=== PATIENT | male | born 1950 | race Caucasian/White ===

== ENCOUNTER 2017-02-04 06:04 | Day surgery (SDC) | payer MEDICARE, BC ==
[2017-01-30 15:45] VITALS: BMI 34.2
[2017-02-04] MEDS ORDERED: ceFAZolin 1,000 MG in SODIUM CHLORIDE 0.9% IRRIGATIO 250 ML IRRIGATION ONE (06:30)
[2017-02-04] MEDS ORDERED: ceFAZolin 2 GM in SODIUM CHLORIDE 0.9% 100 ML IVPB ONE (06:30)
[2017-02-04 07:38] LABS: Basophils % (A) 0 %; CH 31.8; CHCM 32.8; Eosinophils # (A) 0.2 k/uL (0-0.7); Eosinophils % (A) 2 %; HCT 32.1 % (39.0-53.0); HDW 2.59; HGB 10.6 gm/dL (13.0-17.5); Luc # (Auto) 0.11; Luc % (Auto) 1; Lymphocytes # (A) 1.5 k/uL (1.0-4.8); Lymphocytes % (A) 18 %; MCH 32.2 pg (25.0-35.0); MCHC 33.1 g/dL (31.0-37.0); MCV 97.4 fL (80.0-100.0); Mean Platelet Volume 7.6; Monocytes # (A) 0.5 k/uL (0-1.0); Monocytes % (A) 6 %; Neutrophils % (A) 73 %; RBC 3.29 m/uL (4.30-5.90); RDW 13.9 % (11.5-15.5); WBC 8.3 k/uL (3.8-10.6); WBC (Perox) 8.63
[2017-02-04] MEDS ORDERED: IODIXANOL 270 MG/ML 50 ML ML IV ONE (07:44)
[2017-02-04] MEDS ORDERED: IV FLUID CONTINUATION 400 ML IV ONE (07:44)
[2017-02-04 07:47] LABS: Glucose,Whole Blood 180 mg/dL (75-99)
[2017-02-04] MEDS ORDERED: fentaNYL (PF) 50 MCG/ML 2 ML AMP IV ONE (07:50)
[2017-02-04] MEDS ORDERED: MIDAZOLAM 2 MG/2 ML VIAL IV ONE (07:50)
[2017-02-04] MEDS ORDERED: LIDOCAINE 1% INJ 10MG/ML (20 ML MDV) SQ ONE (07:56)
[2017-02-04] MEDS: LIDOCAINE 1% INJ 10MG/ML (20 ML MDV) SQ ONE ×2 (08:07→08:15)
[2017-02-04] MEDS ORDERED: HYDROmorphone 2 MG/ML 1 ML SYRINGE IVP ONE (08:20)
[2017-02-04 08:39] LABS: Calcium 9.2 mg/dL (8.4-10.2)
[2017-02-04] MEDS ORDERED: NITROGLYCERIN OINT 1 INCH/GM PACKET TOPICAL ONE (09:00)
[2017-02-04] MEDS ORDERED: ACETAMINOPHEN TAB 325 MG TAB PO PRN (09:01)
--- NOTE | 2017-02-04 09:13 | P.PCN ---
Date of Procedure: 02/04/17 Preoperative Diagnosis: Intermittent high degree AV block and bradycardia Postoperative Diagnosis: The same Procedure(s) Performed: Dual-chamber permanent pacemaker implantation, axillary venography Description of Procedure: HISTORY: This is a 66-year-old gentleman with history of chronic renal failure on dialysis and also ischemic heart disease, found to have intermittent high degree AV block and severe bradycardia associated with fatigue. Patient was referred for permanent pacemaker implantation by Dr. Peña. CONSENT:I have discussed the risks, benefits and alternative therapies for the above-mentioned procedure and for both sedation/analgesia as well as necessary blood product administration, if indicated, as they pertain to this patient. The patient has indicated understanding and acceptance of the risks and procedures discussed. PROCEDURE: Patient was brought to the lab in a fasting state. Patient was prepped and draped in the usual fashion. Patient was given IV sedation with fentanyl and Versed. The skin below the left clavicle was infiltrated with lidocaine. An incision was made parallel to deltopectoral groove was deepened until the pectoral fascia was exposed. A pocket was created by blunt dissection and cautery. Axillary venography was performed to delineate the course of the axillary vein. 2 sticks were performed into extrathoracic portion of the axillary vein and 2 sheaths were advanced over the guidewires and left in subclavian vein. Conscious Sedation: Versed : 0.5 mg Fentanyl 25 g Dilaudid: 0.5 mg Duration 63 minutes LEADS: ATRIAL: This is manufactured by [employer]. Model number is 7740. Serial number is [id number]. VENTRICULAR: This is manufactured by [employer]. Model number is 7741. Serial number is [id number] The device: MANUFACTURED [employer]. MODEL NUMBER IS [id number]. SERIAL NUMBER IS [id number] The ventricular lead is maneuvered l with help of a straight and curved stylets into the left ventricle apical region. Satisfactory position was obtained and threshold measurements were made. The atrial lead was then maneuvered into the right atrial appendage. And thresholds were obtained. THRESHOLDS: ATRIUM: 0.5 V at pulse width of 0.5 ms. Impedance is 581 ohms P-wave: 3.8 mV VENTRICLE: 0.4 V at pulse width of 0.5 [place] . [place] [address] oh[place] R-wave:. 10 mV The leads and pulse generator remained in the pocket after it was washed with antibiotics. Pocket was closed in the usual fashion. The fascia was closed with 2-0 Prolene ,the subcutaneous tissue was closed with 3-0 Prolene and the skin was closed with 4-0 Prolene. PROGRAMMING: MODE: DDDR RATE: 60-120 OUTPUT: Atrium Ventricle FINAL IMPRESSION: #1 axillary venography. #2. Dual-chamber permanent pacemaker implantation COMPLICATIONS: . None. Patient had some oozing in the pocket related to his dialysis and renal failure PLAN: . Continue prophylactic antibiotics. Monitored on the telemetry unit. Renal consult for management of his renal failure and hospitalist to manage her diabetes.
[2017-02-04] MEDS ORDERED: ceFAZolin 2 GM in SODIUM CHLORIDE 0.9% 100 ML IVPB SCH (09:15)
[2017-02-04] MEDS ORDERED: SIMETHICONE 80 MG CHEWABLE PO PRN (09:36)
[2017-02-04 10:10] VITALS: RESP 18
[2017-02-04] MEDS ORDERED: FUROSEMIDE 20 MG TAB PO SCH (12:00)
[2017-02-04] MEDS ORDERED: SEVELAMER HCL 1600 MG PO SCH (12:00)
[2017-02-04] MEDS: HYDROcodone/APAP 5-325MG 1 EACH TAB PO PRN ×2 (12:03→18:47)
[2017-02-04 12:05] LABS: Glucose,Whole Blood 202 mg/dL (75-99)
[2017-02-04] MEDS: SEVELAMER 800 MG TAB PO SCH (12:07)
[2017-02-04] MEDS: MULTIVITAMINS, THERA 1 EACH TAB PO SCH (12:07)
[2017-02-04 12:15] LABS: Hemoglobin A1C 7.1 % (4.2-6.1)
[2017-02-04] MEDS ORDERED: SEVELAMER 800 MG TAB PO SCH ×3 (12:30→21:00)
[2017-02-04] MEDS ORDERED: FLUoxetine HCL 20 MG CAP PO STA (12:33)
[2017-02-04] MEDS ORDERED: ALLOPURINOL 100 MG TAB PO STA (12:33)
[2017-02-04] MEDS: INSULIN LISPRO (humaLOG) 300 UNIT/3 ML VIAL SQ SCH ×3 (13:09→20:54)
[2017-02-04] MEDS: INSULIN GLARGINE 100 UNIT/ML 10 ML VIAL SQ SCH (13:13)
--- NOTE | 2017-02-04 13:25 | P.CONS ---
History of Present Illness - Reason for Consult Management of diabetes mellitus and insulin recommendations. - History of Present Illness Patient was admitted for elective to [facility] cardiac pacemaker, patient underwent surgery. Patient uses Lantus 8 units along with the NovoLog only during morning at breakfast time 5 units. Patient says that his blood sugars fluctuated due to his dietary noncompliance. Patient's hemoglobin A1c was opted which is 7.1. Patient denied any fever, chills, nausea, vomiting. Patient is feeling better patient underwent the procedure patient has a sling to the right arm after the procedure Review of Systems REVIEW OF SYSTEMS: CONSTITUTIONAL: No fever, no malaise, no fatigue. HEENT: No recent visual problems or hearing problems. Denied any sore throat. CARDIOVASCULAR: No chest pain, orthopnea, PND, no palpitations, no syncope. PULMONARY: No shortness of breath, no cough, no hemoptysis. GASTROINTESTINAL: No diarrhea, no nausea, no vomiting, no abdominal pain. Normoactive bowel sounds. NEUROLOGICAL: No headaches, no weakness, no numbness. HEMATOLOGICAL: Denies any bleeding or petechiae. GENITOURINARY: Denies any burning micturition, frequency, or urgency. MUSCULOSKELETAL/RHEUMATOLOGICAL: Denies any joint pain, swelling, or any muscle pain. ENDOCRINE: Denies any polyuria or polydipsia. The rest of the 14-point review of systems is negative. Past Medical History Past Medical History: Diabetes Mellitus, Dialysis, Eye Disorder, GERD/Reflux, Hyperlipidemia, Hypertension, Renal Disease Additional Past Medical History / Comment(s): congenital spinal defect, retinopathy, ADD, Neuropathy dialysis jan 20 2015. has dialysis es, , and sat. charcot foot left History of Any Multi-Drug Resistant Organisms: None Reported Past Surgical History: No Surgical Hx Reported Additional Past Surgical History / Comment(s): right arm shunt for dialysis 2014 , bilat cataract 06/2016 Past Anesthesia/Blood Transfusion Reactions: No Reported Reaction Past Psychological History: ADD/ADHD, Anxiety Smoking Status: Never smoker Past Alcohol Use History: None Reported Past Drug Use History: None Reported - Past Family History Father Family Medical History: No Reported History Additional Family Medical History / Comment(s): pt is adopted & does not know any biological family hx Medications and Allergies Home Medications Medication Instructions Recorded Confirmed Type Atorvastatin Calcium [Lipitor] 80 mg PO HS 09/29/13 01/30/17 History FLUoxetine HCL [PROzac] 20 mg PO DAILY 09/29/13 01/30/17 History Insulin Glargine [Lantus] 8 unit SQ DAILY 09/29/13 02/04/17 History Insulin Aspart [NovoLOG] 5 unit SQ DAILY 03/14/14 02/04/17 History Furosemide [Lasix] 60 mg PO DIRECTED 09/30/14 02/04/17 History Allopurinol [Zyloprim] 100 mg PO DAILY 01/30/17 01/30/17 History Aspirin [Adult Low Dose Aspirin EC] 81 mg PO DAILY 01/30/17 01/30/17 History Cholecalciferol [Vitamin D3] 1,000 unit PO DAILY 01/30/17 01/30/17 History Mag/Aluminum/Sod Bicarb/Alginc 1 each PO DAILY PRN 01/30/17 02/04/17 History [Gaviscon 80-14.2 mg Tab Chew] Multivitamin [Men's Multi-Vitamin] 1 each PO DAILY 01/30/17 01/30/17 History Sevelamer HCl [Renagel] 1,600 mg PO AC-SUPPER 01/30/17 02/04/17 History Sevelamer HCl [Renagel] 1,600 mg PO W/LUNCH 01/30/17 01/30/17 History Sevelamer HCl [Renagel] 800 mg PO AC-BRKFST 01/30/17 02/04/17 History Allergies Allergy/AdvReac Type Severity Reaction Status Date / Time No Known Allergies Allergy Verified 01/30/17 15:15 Physical Exam Vitals: Vital Signs Temp Pulse Pulse Resp BP BP Pulse Ox 02/04/17 12:51 18 02/04/17 11:20 74 166/58 97 02/04/17 10:50 70 197/73 95 02/04/17 10:35 69 189/70 96 02/04/17 10:20 69 203/81 96 02/04/17 10:05 97.8 F 71 18 181/61 92 L 02/04/17 06:36 98.1 F 74 20 204/96 94 L Intake and Output 02/03/17 02/04/17 02/04/17 22:59 06:59 14:59 Intake Total 300 Output Total 300 Balance 0 Intake: IV 300 Output: Urine 300 Other: Voiding Method Toilet PHYSICAL EXAMINATION: GENERAL: The patient is alert and oriented x3, not in any acute distress. Well developed, well nourished. HEENT: Pupils are round and equally reacting to light. EOMI. No scleral icterus. No conjunctival pallor. Normocephalic, atraumatic. No pharyngeal erythema. No thyromegaly. CARDIOVASCULAR: S1 and S2 present. No murmurs, rubs, or gallops. PULMONARY: Chest is clear to auscultation, no wheezing or crackles. ABDOMEN: Soft, nontender, nondistended, normoactive bowel sounds. No palpable organomegaly. MUSCULOSKELETAL: No joint swelling or deformity. EXTREMITIES: No cyanosis, clubbing, or pedal edema. NEUROLOGICAL: Gross neurological examination did not reveal any focal deficits. SKIN: No rashes. Results CBC & Chem 7: 02/04/17 06:35 02/04/17 08:16 Labs: Abnormal Lab Results - Last 24 Hours (Table) 02/04/17 02/04/17 02/04/17 Range/Units 06:30 06:35 07:16 RBC 3.29 L (4.30-5.90) m/uL Hgb 10.6 L (13.0-17.5) gm/dL Hct 32.1 L (39.0-53.0) % BUN (9-20) mg/dL Creatinine (0.66-1.25) mg/dL Glucose (74-99) mg/dL POC Glucose (mg/dL) 180 H (75-99) mg/dL Hemoglobin A1c 7.1 H (4.2-6.1) % 02/04/17 02/04/17 Range/Units 08:16 12:01 RBC (4.30-5.90) m/uL Hgb (13.0-17.5) gm/dL Hct (39.0-53.0) % BUN 51 H (9-20) mg/dL Creatinine 5.68 H* (0.66-1.25) mg/dL Glucose 206 H (74-99) mg/dL POC Glucose (mg/dL) 202 H (75-99) mg/dL Hemoglobin A1c (4.2-6.1) % Assessment and Plan Plan: #1 that was read as type II: Humalog is probably not beneficial because of which Will be discontinued will monitor his blood sugars here patient will be started on his 8 units of Lantus, depending on his blood sugars here patient may need around 8-12 units of Lantus at home. #2 end-stage renal disease: Secondary to diabetic nephropathy and patient is on hemodialysis which will be continued as per nephrology. #4 gastroesophageal reflux disease #5 hyperlipidemia #6 hypertension For above-mentioned chronic medical problems and wouldn't continue her home appropriate medications.
[2017-02-04] MEDS: ceFAZolin 2 GM in SODIUM CHLORIDE 0.9% 100 ML IVPB SCH ×2 (15:24→20:53)
[2017-02-04 17:13] LABS: Glucose,Whole Blood 187 mg/dL (75-99)
[2017-02-04] MEDS: SODIUM CHLORIDE 0.9% 1,000 ML IV SCH ×3 (19:44→19:45)
[2017-02-04 20:55] LABS: Glucose,Whole Blood 157 mg/dL (75-99)
[2017-02-04] MEDS ORDERED: ATORVASTATIN 80 MG TAB PO SCH (21:00)
[2017-02-05] MEDS: HYDROcodone/APAP 5-325MG 1 EACH TAB PO PRN (01:39)
[2017-02-05] MEDS: ceFAZolin 2 GM in SODIUM CHLORIDE 0.9% 100 ML IVPB SCH ×2 (03:22→12:04)
[2017-02-05] MEDS: SODIUM CHLORIDE 0.9% 1,000 ML IV SCH ×2 (03:38→12:04)
--- NOTE | 2017-02-05 05:38 | CONS ---
CONSULTATION REASON FOR CONSULT: End-stage renal disease. HISTORY OF PRESENT ILLNESS: Patient is a 66-year-old male with end-stage renal disease, on hemodialysis on a Saturday, , Saturday schedule. He was admitted to the hospital for a pacemaker, which was placed this morning by Dr. Dumont. Patient is scheduled for hemodialysis tomorrow. He is receiving antibiotics. Therefore, we will dialyze him in the hospital tomorrow prior to discharge. Currently, patient denies any chest pains. No shortness of breath. No nausea, vomiting, abdominal pain. He tolerated the procedure fairly well. PAST MEDICAL HISTORY: End-stage renal disease, on hemodialysis, type 2 diabetes, hypertension, CKD, mineral bone disorder, hyperlipidemia, anemia of chronic disease, retinopathy, history of Charcot foot. PAST SURGICAL HISTORY: Right arm AV fistula, cataract surgery. SOCIAL HISTORY: Negative for smoking, drug abuse or alcohol abuse. MEDICATIONS: Medications at home prior to admission included Lipitor, Prozac, insulin, Lasix, Zyloprim, aspirin, Renagel. ALLERGIES: None. PHYSICAL EXAMINATION: On examination, patient is currently comfortable, awake, alert, oriented x3. He is not in any acute distress. Blood pressure is 165/61, heart rate 69 per minute. Patient is afebrile. EXAMINATION OF THE HEART: S1, S2. EXAMINATION OF THE LUNGS: Bilateral breath sounds are heard. Abdomen is soft, nontender. Examination of the lower extremities shows no evidence of edema. EN[employer]ICIAN exam is grossly intact. LABS: Labs show sodium of 142, potassium 4.0. Hemoglobin 10.6 g/dL. ASSESSMENT: 1. End-stage renal disease, on hemodialysis on a Saturday, , Saturday schedule via right arm AV fistula. We will arrange for hemodialysis in a.m. 2. Status post pacemaker placement. 3. Type 2 diabetes. 4. Hypertension. 5. 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 PLAN: Hemodialysis in a.m. Patient can be discharged tomorrow after dialysis. MMODL / ZACHERYN: [id number] /
[2017-02-05 06:51] LABS: Glucose,Whole Blood 165 mg/dL (75-99)
--- NOTE | 2017-02-05 07:59 | XR ---
EXAMINATION TYPE: XR chest 2V DATE OF EXAM: 02/05/2017 COMPARISON: 03/25/2014 TECHNIQUE: PA and lateral views submitted. HISTORY: Lead placement FINDINGS: Double lead pacemaker seen with the proximal lead overlying the right atrium and distal lead overlyin g the right ventricle. Mild central interstitial prominence noted. Tiny bilateral effusion suspected. No sizable pneumothorax. IMPRESSION: 1. Right-sided pacemaker appears in good position with no sizable pneumothorax. 2. Small bilateral effusions and basilar consolidation. Correlate for mild central venous congestion.
--- NOTE | 2017-02-05 08:36 | P.DS ---
Providers Date of admission: 02/04/2017 Attending physician: Suly Dumont Consults: 02/04/17 09:05 Consult Physician Routine Consulting Provider: Nicolasa Pringle Consult Reason/Comments: High Degree AV Block Do you want consulting provider notified?: Yes 02/04/17 09:36 Consult Physician Routine Consulting Provider: Quintin Kelly Consult Reason/Comments: Diabetic Management Do you want consulting provider notified?: Yes Primary care physician: Britta Branham - Discharge Diagnosis(es) (1) High degree atrioventricular block Current Visit: Yes Status: Acute (2) Chronic renal disease Current Visit: No Status: Acute (3) Congestive heart failure Current Visit: No Status: Acute (4) Diabetes Current Visit: No Status: Acute (5) HTN (hypertension) Current Visit: No Status: Acute (6) Hyperlipidemia Current Visit: No Status: Acute Hospital Course: This patient was brought in as an outpatient for permanent pacemaker implantation because of intermittent high degree AV block. Patient had a dual- chamber permanent pacemaker implantation yesterday. Patient tolerated the procedure well. The site looks intact with minimal oozing. No evidence of hematoma. Patient denies any significant chest pain. Chest x-ray shows proper lead position and no evidence of pneumothorax or other complications. Patient is having dialysis today. He'll be discharged home off dialysis. His blood pressure is running high. I'm going to add Norvasc 5 mg daily. He'll continue rest of the home medications. He is given usual instructions for the pacemaker. He'll keep the area dry for the next week. He is advised to not to lift infiltrates pushing or pulling with the right arm. Patient is advised to report if he develops any significant pain or swelling or redness. Follow-up with Dr. Peña in one week Plan - Discharge Summary New Discharge Prescriptions: New Cephalexin [Keflex] 500 mg PO Q8HR #20 cap amLODIPine BESYLATE [Norvasc] 5 mg PO ONCE #30 tablet No Action Insulin Glargine [Lantus] 8 unit SQ DAILY Atorvastatin Calcium [Lipitor] 80 mg PO HS FLUoxetine HCL [PROzac] 20 mg PO DAILY Insulin Aspart [NovoLOG] 5 unit SQ DAILY Furosemide [Lasix] 60 mg PO DIRECTED Cholecalciferol [Vitamin D3] 1,000 unit PO DAILY Allopurinol [Zyloprim] 100 mg PO DAILY Sevelamer HCl [Renagel] 1,600 mg PO AC-SUPPER Multivitamin [Men's Multi-Vitamin] 1 each PO DAILY Mag/Aluminum/Sod Bicarb/Alginc [Gaviscon 80-14.2 mg Tab Chew] 1 each PO DAILY PRN PRN Reason: Heartburn Aspirin [Adult Low Dose Aspirin EC] 81 mg PO DAILY Sevelamer HCl [Renagel] 1,600 mg PO W/LUNCH Sevelamer HCl [Renagel] 800 mg PO AC-BRKFST Discharge Medication List Atorvastatin Calcium [Lipitor] 80 mg PO HS 09/29/13 [History] FLUoxetine HCL [PROzac] 20 mg PO DAILY 09/29/13 [History] Insulin Glargine [Lantus] 8 unit SQ DAILY 09/29/13 [History] Insulin Aspart [NovoLOG] 5 unit SQ DAILY 03/14/14 [History] Furosemide [Lasix] 60 mg PO DIRECTED 09/30/14 [History] Allopurinol [Zyloprim] 100 mg PO DAILY 01/30/17 [History] Aspirin [Adult Low Dose Aspirin EC] 81 mg PO DAILY 01/30/17 [History] Cholecalciferol [Vitamin D3] 1,000 unit PO DAILY 01/30/17 [History] Mag/Aluminum/Sod Bicarb/Alginc [Gaviscon 80-14.2 mg Tab Chew] 1 each PO DAILY PRN 01/30/17 [History] Multivitamin [Men's Multi-Vitamin] 1 each PO DAILY 01/30/17 [History] Sevelamer HCl [Renagel] 1,600 mg PO AC-SUPPER 01/30/17 [History] Sevelamer HCl [Renagel] 1,600 mg PO W/LUNCH 01/30/17 [History] Sevelamer HCl [Renagel] 800 mg PO AC-BRKFST 01/30/17 [History] Cephalexin [Keflex] 500 mg PO Q8HR #20 cap 02/05/17 [Rx] amLODIPine BESYLATE [Norvasc] 5 mg PO ONCE #30 tablet 02/05/17 [Rx] Follow up Appointment(s)/Referral(s): Jacky Cuevas MD [STAFF PHYSICIAN] - 1 Week Patient Instructions/Handouts: Pacemaker (GEN) Discharge Disposition: HOME SELF-CARE
[2017-02-05] MEDS ORDERED: ALLOPURINOL 100 MG TAB PO SCH (09:00)
[2017-02-05] MEDS ORDERED: CHOLECALCIFEROL 1,000 UNIT TAB PO SCH (09:00)
[2017-02-05] MEDS ORDERED: INSULIN GLARGINE 100 UNIT/ML 10 ML VIAL SQ SCH ×2 (09:00)
[2017-02-05] MEDS ORDERED: INSULIN LISPRO (humaLOG) 300 UNIT/3 ML VIAL SQ SCH (09:00)
[2017-02-05] MEDS ORDERED: FLUoxetine HCL 20 MG CAP PO SCH (09:00)
[2017-02-05] MEDS ORDERED: SEVELAMER 800 MG TAB PO SCH (09:00)
[2017-02-05] MEDS ORDERED: amLODIPine 5 MG TAB PO SCH (09:00)
[2017-02-05 11:42] VITALS: BP 156/82; PULSE 69; TEMP 97.6
[2017-02-05] MEDS: INSULIN LISPRO (humaLOG) 300 UNIT/3 ML VIAL SQ SCH ×2 (11:46→12:25)
[2017-02-05 11:53] LABS: Glucose,Whole Blood 186 mg/dL (75-99)
[2017-02-05] MEDS: SEVELAMER 800 MG TAB PO SCH (12:02)
[2017-02-05] MEDS: MULTIVITAMINS, THERA 1 EACH TAB PO SCH (12:03)
[2017-02-05] MEDS: INSULIN GLARGINE 100 UNIT/ML 10 ML VIAL SQ SCH (12:26)
--- NOTE | 2017-02-05 20:33 | PN ---
PROGRESS NOTE Patient is seen for followup for end-stage renal disease. He is currently seen on hemodialysis. He tolerated his treatment very well. The patient is being discharged today after dialysis. He was admitted to the hospital for pacemaker placement. EXAMINATION: Blood pressure is 156/82, heart rate 69 per minute, patient is afebrile. Examination shows he appears to be euvolemic with no evidence of edema in his lower extremities. Access was working well. LABS: Show potassium of 4.08 from yesterday. ASSESSMENT: 1. End-stage renal disease, on hemodialysis on a Saturday, , Saturday schedule, status post hemodialysis today. 2. Status post pacemaker placement. 3. Hypertension currently improved post dialysis. Will adjust blood pressure medicines further depending on his readings at the unit. PLAN: The patient is stable for discharge from Nephrology standpoint. MMODL / IJN: [id number] /
== END 2017-02-05 14:35 | disposition home or self-care (01) ==
LOC: CATHEP 06:04 → 3OBS 08:57 → CATHEP 02-05 14:35
PROVIDERS: ATTEND Internal Medicine Cardiovascular Disease
DX: I44.2 Atrioventricular block, complete (principal); I13.2 Hypertensive heart and chronic kidney disease with heart failure and with stage 5 chronic kidney disease, or end stage renal disease; I35.0 Nonrheumatic aortic (valve) stenosis; E11.21 Type 2 diabetes mellitus with diabetic nephropathy; E11.319 Type 2 diabetes mellitus with unspecified diabetic retinopathy without macular edema; D63.1 Anemia in chronic kidney disease; I25.9 Chronic ischemic heart disease, unspecified; K21.9 Gastro-esophageal reflux disease without esophagitis; E83.89 Other disorders of mineral metabolism; N18.6 End stage renal disease; I50.9 Heart failure, unspecified; Z99.2 Dependence on renal dialysis; E78.5 Hyperlipidemia, unspecified; Z68.35 Body mass index [BMI] 35.0-35.9, adult; E66.9 Obesity, unspecified; Z91.11 Patient's noncompliance with dietary regimen; Z79.4 Long term (current) use of insulin; Z79.899 Other long term (current) drug therapy; Z79.82 Long term (current) use of aspirin
CPT/HCPCS: 33208; 99152; 99153 ×3; 80048; 83036; 85025; 71020; G0257; C1785; C1898; J2250; J1170; Q9966; J0690 ×3; J2001; J3010; 90935

== ENCOUNTER 2017-02-12 07:49 | Inpatient (IN) | payer MEDICARE, BC ==
--- NOTE | 2017-02-12 08:05 | ED ---
General Adult HPI - General Stated complaint: Weakness, NVD Time Seen by Provider: 02/12/17 07:54 Source: patient, RN notes reviewed Mode of arrival: EMS Limitations: no limitations - History of Present Illness Initial comments: 66-year-old male history of hypertension, diabetes, end-stage renal disease, and recent pacemaker placement presents for evaluation of generalized weakness. Patient's last hemodialysis was Saturday. He is scheduled for hemodialysis this morning at 9 AM. Patient noted this morning that his oxygen saturation at home was in the mid to low 80s. He does not wear home O2. Denies chest pain. Denies abdominal pain. Denies nausea vomiting or diarrhea. Patient states his pacemaker was placed approximately one week ago. He had been feeling well, until the last 24 hours. Patient denies cough. Does report subjective fever and chills. - Related Data Home Medications Medication Instructions Recorded Confirmed Atorvastatin Calcium [Lipitor] 80 mg PO HS 09/29/13 02/12/17 FLUoxetine HCL [PROzac] 20 mg PO DAILY@119909/29/13 02/12/17 Insulin Glargine [Lantus] 8 unit SQ DAILY@119909/29/13 02/12/17 Insulin Aspart [NovoLOG] 5 unit SQ DAILY 03/14/14 02/12/17 Furosemide [Lasix] 60 mg PO SUMOWEFR 09/30/14 02/12/17 Allopurinol [Zyloprim] 100 mg PO DAILY@119901/30/17 02/12/17 Aspirin [Adult Low Dose Aspirin EC] 81 mg PO DAILY@119901/30/17 02/12/17 Cholecalciferol [Vitamin D3] 1,000 unit PO DAILY@119901/30/17 02/12/17 Mag/Aluminum/Sod Bicarb/Alginc 1 tab PO DAILY PRN 01/30/17 02/12/17 [Gaviscon 80-14.2 mg Tab Chew] Multivitamin [Men's Multi-Vitamin] 1 tab PO DAILY@119901/30/17 02/12/17 Sevelamer HCl [Renagel] 1,600 mg PO AC-SUPPER 01/30/17 02/12/17 Sevelamer HCl [Renagel] 1,600 mg PO W/LUNCH 01/30/17 02/12/17 Sevelamer HCl [Renagel] 800 mg PO AC-BRKFST 01/30/17 02/12/17 amLODIPine BESYLATE [Norvasc] 5 mg PO DAILY@1200 02/12/17 02/12/17 Allergies Allergy/AdvReac Type Severity Reaction Status Date / Time No Known Allergies Allergy Verified 02/12/17 08:10 Review of Systems ROS Statement: Those systems with pertinent positive or pertinent negative responses have been documented in the HPI. ROS Other: All systems not noted in ROS Statement are negative. Past Medical History Past Medical History: Diabetes Mellitus, Dialysis, Eye Disorder, GERD/Reflux, Hyperlipidemia, Hypertension, Renal Disease Additional Past Medical History / Comment(s): congenital spinal defect, retinopathy, ADD, Neuropathy dialysis jan 20 2015. has dialysis tues, thurs, and sat. charcot foot left History of Any Multi-Drug Resistant Organisms: None Reported Past Surgical History: No Surgical Hx Reported, Pacemaker Additional Past Surgical History / Comment(s): right arm shunt for dialysis 2014 , bilat cataract 06/2016 Past Anesthesia/Blood Transfusion Reactions: No Reported Reaction Past Psychological History: ADD/ADHD, Anxiety Smoking Status: Never smoker Past Alcohol Use History: None Reported Past Drug Use History: None Reported - Past Family History Father Family Medical History: No Reported History Additional Family Medical History / Comment(s): pt is adopted & does not know any biological family hx General Exam Limitations: no limitations General appearance: alert, in no apparent distress Head exam: Present: atraumatic, normocephalic Eye exam: Present: normal appearance, PERRL ENT exam: Present: normal exam Neck exam: Present: normal inspection. Absent: tenderness, meningismus Respiratory exam: Present: rales. Absent: respiratory distress Cardiovascular Exam: Present: regular rate, normal rhythm GI/Abdominal exam: Present: soft. Absent: distended, tenderness Back exam: Present: normal inspection, full ROM Neurological exam: Present: alert, oriented X3 Psychiatric exam: Present: normal affect, normal mood Skin exam: Present: warm, dry, intact. Absent: cyanosis, diaphoretic Course Vital Signs 02/12/17 02/12/17 02/12/17 07:54 08:21 08:59 Temperature 98.6 F Pulse Rate 95 92 Pulse Rate [ 91 Claim Inspector ] Respiratory 16 16 18 Rate Blood Pressure 138/65 O2 Sat by Pulse 88 L 94 L Oximetry 02/12/17 09:46 Temperature Pulse Rate 86 Pulse Rate [ Claim Inspector ] Respiratory 16 Rate Blood Pressure 145/71 O2 Sat by Pulse 94 L Oximetry EKG Findings - EKG Comments: EKG Findings:: EKG shows atrial sensed ventricular paced rhythm, rate of 94, ME interval 124, QRS duration 196, QTC 572, no ST segment elevation. Medical Decision Making - Medical Decision Making 66-year-old male with end-stage renal disease presents with shortness breath, hypoxia, and generalized weakness. Laboratory studies do reveal hemoglobin 9.8 which is stable, white blood cell count at 20 which is normal. BUN is elevated at 90. Chest x-ray shows pulmonary edema with bilateral pleural effusions. Patient course a little oxygen for hypoxia. Case is discussed with nephrology patient will be admitted for hemodialysis. Diagnosis: Fluid overload - Lab Data Result diagrams: 02/12/17 08:07 02/12/17 08:07 Lab Results 02/12/17 02/12/17 02/12/17 Range/Units 08:07 08:07 08:07 WBC 9.8 (3.8-10.6) k/uL RBC 3.08 L (4.30-5.90) m/uL Hgb 9.8 L (13.0-17.5) gm/dL Hct 30.1 L (39.0-53.0) % MCV 97.4 (80.0-100.0) fL MCH 31.8 (25.0-35.0) pg MCHC 32.6 (31.0-37.0) g/dL RDW 15.1 (11.5-15.5) % Plt Count 228 (150-450) k/uL Neutrophils % 83 % Lymphocytes % 11 % Monocytes % 4 % Eosinophils % 1 % Basophils % 0 % Neutrophils # 8.1 H (1.3-7.7) k/uL Lymphocytes # 1.0 (1.0-4.8) k/uL Monocytes # 0.4 (0-1.0) k/uL Eosinophils # 0.1 (0-0.7) k/uL Basophils # 0.0 (0-0.2) k/uL PT (9.0-12.0) sec INR (<1.2) APTT (22.0-30.0) sec Sodium 140 (137-145) mmol/L Potassium 4.6 (3.5-5.1) mmol/L Chloride 97 L (98-107) mmol/L Carbon Dioxide 24 (22-30) mmol/L Anion Gap 19 mmol/L BUN 90 H* (9-20) mg/dL Creatinine 6.82 H* (0.66-1.25) mg/dL Est GFR (MDRD) Af Amer 10 (>60 ml/min/1.73 sqM) Est GFR (MDRD) Non-Af 8 (>60 ml/min/1.73 sqM) Glucose 186 H (74-99) mg/dL Plasma Lactic Acid Cooper (0.7-2.0) mmol/L Calcium 9.3 (8.4-10.2) mg/dL Magnesium 2.1 (1.6-2.3) mg/dL Total Bilirubin 0.6 (0.2-1.3) mg/dL AST 25 (17-59) U/L ALT 11 L (21-72) U/L Alkaline Phosphatase 197 H (38-126) U/L Total Creatine Kinase 83 (55-170) U/L CK-MB (CK-2) 2.1 (0.0-2.4) ng/mL CK-MB (CK-2) Rel Index 2.5 Troponin I 0.042 H* (0.000-0.034) ng/mL NT-Pro-B Natriuret Pep pg/mL Total Protein 7.5 (6.3-8.2) g/dL Albumin 4.0 (3.5-5.0) g/dL 02/12/17 02/12/17 02/12/17 Range/Units 08:07 08:07 08:07 WBC (3.8-10.6) k/uL RBC (4.30-5.90) m/uL Hgb (13.0-17.5) gm/dL Hct (39.0-53.0) % MCV (80.0-100.0) fL MCH (25.0-35.0) pg MCHC (31.0-37.0) g/dL RDW (11.5-15.5) % Plt Count (150-450) k/uL Neutrophils % % Lymphocytes % % Monocytes % % Eosinophils % % Basophils % % Neutrophils # (1.3-7.7) k/uL Lymphocytes # (1.0-4.8) k/uL Monocytes # (0-1.0) k/uL Eosinophils # (0-0.7) k/uL Basophils # (0-0.2) k/uL PT 11.2 (9.0-12.0) sec INR 1.1 (<1.2) APTT 27.3 (22.0-30.0) sec Sodium (137-145) mmol/L Potassium (3.5-5.1) mmol/L Chloride (98-107) mmol/L Carbon Dioxide (22-30) mmol/L Anion Gap mmol/L BUN (9-20) mg/dL Creatinine (0.66-1.25) mg/dL Est GFR (MDRD) Af Amer (>60 ml/min/1.73 sqM) Est GFR (MDRD) Non-Af (>60 ml/min/1.73 sqM) Glucose (74-99) mg/dL Plasma Lactic Acid Cooper 1.3 (0.7-2.0) mmol/L Calcium (8.4-10.2) mg/dL Magnesium (1.6-2.3) mg/dL Total Bilirubin (0.2-1.3) mg/dL AST (17-59) U/L ALT (21-72) U/L Alkaline Phosphatase (38-126) U/L Total Creatine Kinase (55-170) U/L CK-MB (CK-2) (0.0-2.4) ng/mL CK-MB (CK-2) Rel Index Troponin I (0.000-0.034) ng/mL NT-Pro-B Natriuret Pep 43549 pg/mL Total Protein (6.3-8.2) g/dL Albumin (3.5-5.0) g/dL Disposition Clinical Impression: Fluid overload Disposition: ADMITTED IP TO THIS [facility] Condition: Good Referrals: Nonstaff,Physician [Primary Care Provider] - 1-2 days Decision to Admit Reason: Admit from EC Decision Date: 02/12/17 Decision Time: 10:30
[2017-02-12 08:29] LABS: Basophils % (A) 0 %; CH 32.9; CHCM 33.9; Eosinophils # (A) 0.1 k/uL (0-0.7); Eosinophils % (A) 1 %; HCT 30.1 % (39.0-53.0); HGB 9.8 gm/dL (13.0-17.5); Luc # (Auto) 0.08; Luc % (Auto) 1; Lymphocytes % (A) 11 %; MCH 31.8 pg (25.0-35.0); MCHC 32.6 g/dL (31.0-37.0); MCV 97.4 fL (80.0-100.0); Mean Platelet Volume 7.9; Monocytes # (A) 0.4 k/uL (0-1.0); Monocytes % (A) 4 %; Neutrophils # (A) 8.1 k/uL (1.3-7.7); Neutrophils % (A) 83 %; RBC 3.08 m/uL (4.30-5.90); RDW 15.1 % (11.5-15.5); WBC 9.8 k/uL (3.8-10.6); WBC (Perox) 11.03
[2017-02-12 08:41] LABS: Calcium 9.3 mg/dL (8.4-10.2); Magnesium 2.1 mg/dL (1.6-2.3); Potassium 4.6 mmol/L (3.5-5.1); Total Bilirubin 0.6 mg/dL (0.2-1.3); Total Protein 7.5 g/dL (6.3-8.2)
[2017-02-12 08:46] LABS: INR 1.1 (<1.2); Partial Thromboplastin Time 27.3 sec (22.0-30.0); Prothrombin Time 11.2 sec (9.0-12.0)
[2017-02-12 09:01] LABS: Creatine Kinase MB 2.1 ng/mL (0.0-2.4)
[2017-02-12 09:03] LABS: Troponin I 0.042 ng/mL (0.000-0.034)
--- NOTE | 2017-02-12 09:42 | XR ---
EXAMINATION TYPE: XR chest 2V DATE OF EXAM: 02/12/2017 COMPARISON: Chest x-ray from one week ago HISTORY: Weakness. TECHNIQUE: Frontal and lateral views of the chest are obtained. FINDINGS: There is redemonstration of cardiomegaly with dual lead pacemaker and atherosclerotic thor acic aorta. There is new mild interstitial edema with Marlon B lines in the periphery and vascular c ongestion . There are tiny bilateral pleural effusions with blunting of posterior costophrenic angles new from prior. The osseous structures are intact. IMPRESSION: Consider CHF exacerbation as there is cardiomegaly with more prominent tiny bilateral pl eural effusions as well as new mild central vascular congestion and interstitial edema felt present.
[2017-02-12] MEDS ORDERED: NALOXONE 0.4 MG/ML 1 ML VIAL IV PRN (10:20)
[2017-02-12] MEDS ORDERED: ACETAMINOPHEN TAB 325 MG TAB PO PRN (10:20)
[2017-02-12] MEDS ORDERED: ONDANSETRON 4 MG/2 ML VIAL IVP PRN (10:20)
[2017-02-12 14:02] VITALS: RESP 18
[2017-02-12] MEDS ORDERED: [UNRECOGNIZED DRUG - OTHER] PO PRN (16:25)
[2017-02-12] MEDS ORDERED: MAG PO PRN (16:25)
[2017-02-12] MEDS ORDERED: ALUMINUM PO PRN (16:25)
[2017-02-12] MEDS ORDERED: SOD BICARB PO PRN (16:25)
[2017-02-12] MEDS ORDERED: ALGINC PO PRN (16:25)
[2017-02-12 16:32] LABS: Glucose,Whole Blood 201 mg/dL (75-99)
--- NOTE | 2017-02-12 17:11 | P.HPIM ---
History of Present Illness 66-year-old pleasant gentleman was seen by me during the previous hospitalization as a consult for diabetes mellitus comes in with compression complaints of shortness of breath orthopnea and PND going on since last night patient is found to have pulmonary edema on the chest x-ray his end-stage renal disease patient on hemodialysis and nephrology was consulted whose medical hemodialysis today tomorrow and probably day after. Patient's regular schedule is Saturday, Saturday. Patient still makes little bit of urine. 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 Patient denied any fever chills, nausea, vomiting, abdominal pain, dysuria. Review of Systems REVIEW OF SYSTEMS: CONSTITUTIONAL: No fever, no malaise, no fatigue. HEENT: No recent visual problems or hearing problems. Denied any sore throat. CARDIOVASCULAR: No chest pain, no palpitations, no syncope. PULMONARY: no cough, no hemoptysis. GASTROINTESTINAL: No diarrhea, no nausea, no vomiting, no abdominal pain. Normoactive bowel sounds. NEUROLOGICAL: No headaches, no weakness, no numbness. HEMATOLOGICAL: Denies any bleeding or petechiae. GENITOURINARY: Denies any burning micturition, frequency, or urgency. MUSCULOSKELETAL/RHEUMATOLOGICAL: Denies any joint pain, swelling, or any muscle pain. ENDOCRINE: Denies any polyuria or polydipsia. The rest of the 14-point review of systems is negative. Past Medical History Past Medical History: Heart Failure, Diabetes Mellitus, Dialysis, Eye Disorder, GERD/Reflux, Hyperlipidemia, Hypertension, Renal Disease Additional Past Medical History / Comment(s): AVB,bradycardia, pauses during dialysis-has recent pacemaker, aortic valve stenosis-murmur, congenital spinal defect-scoliosis, bilateral retinopathy, bilateral knees to toes peripheral neuropathy, ESRD-hemodialysis on , , and sat with last dialysis 02/09/17 , charcot foot left History of Any Multi-Drug Resistant Organisms: None Reported Past Surgical History: No Surgical Hx Reported, Pacemaker Additional Past Surgical History / Comment(s): 02/04/17 dual chamber pacemaker, L arm shunt for dialysis, bilat cataract removal with lens implants 06/2016 Past Anesthesia/Blood Transfusion Reactions: No Reported Reaction Type of Cardiac Device: Permanent Pacemaker Device Placement Date:: 02/04/17 Smoking Status: Never smoker - Past Family History Father Family Medical History: No Reported History Additional Family Medical History / Comment(s): pt is adopted & does not know any biological family hx Medications and Allergies Home Medications Medication Instructions Recorded Confirmed Type Atorvastatin Calcium [Lipitor] 80 mg PO HS 09/29/13 02/12/17 History FLUoxetine HCL [PROzac] 20 mg PO DAILY@1200 09/29/13 02/12/17 History Insulin Glargine [Lantus] 8 unit SQ DAILY@119909/29/13 02/12/17 History Insulin Aspart [NovoLOG] 5 unit SQ DAILY 03/14/14 02/12/17 History Furosemide [Lasix] 60 mg PO SUMOWEFR 09/30/14 02/12/17 History Allopurinol [Zyloprim] 100 mg PO DAILY@119901/30/17 02/12/17 History Aspirin [Adult Low Dose Aspirin EC] 81 mg PO DAILY@1200 01/30/17 02/12/17 History Cholecalciferol [Vitamin D3] 1,000 unit PO DAILY@119901/30/17 02/12/17 History Mag/Aluminum/Sod Bicarb/Alginc 1 tab PO DAILY PRN 01/30/17 02/12/17 History [Gaviscon 80-14.2 mg Tab Chew] Multivitamin [Men's Multi-Vitamin] 1 tab PO DAILY@119901/30/17 02/12/17 History Sevelamer HCl [Renagel] 1,600 mg PO AC-SUPPER 01/30/17 02/12/17 History Sevelamer HCl [Renagel] 1,600 mg PO W/LUNCH 01/30/17 02/12/17 History Sevelamer HCl [Renagel] 800 mg PO AC-BRKFST 01/30/17 02/12/17 History amLODIPine BESYLATE [Norvasc] 5 mg PO DAILY@1200 02/12/17 02/12/17 History Allergies Allergy/AdvReac Type Severity Reaction Status Date / Time No Known Allergies Allergy Verified 02/12/17 08:10 Physical Exam Vitals: Vital Signs Temp Pulse Pulse Pulse Resp BP BP 02/12/17 16:52 02/12/17 12:30 97.9 F 76 18 140/83 02/12/17 12:15 98.6 F 86 16 145/71 02/12/17 09:46 86 16 145/71 02/12/17 08:59 92 18 138/65 02/12/17 08:21 91 16 02/12/17 07:54 98.6 F 95 16 Pulse Ox 02/12/17 16:52 92 L 02/12/17 12:30 98 02/12/17 12:15 94 L 02/12/17 09:46 94 L 02/12/17 08:59 94 L 02/12/17 08:21 02/12/17 07:54 88 L Intake and Output 02/12/17 02/12/17 02/12/17 06:59 14:59 22:59 Other: # Voids 0 Weight 96.7 kg Patient Weight 02/13/17 06:59 Weight 96.7 kg PHYSICAL EXAMINATION: GENERAL: The patient is alert and oriented x3, not in any acute distress. Well developed, well nourished. HEENT: Pupils are round and equally reacting to light. EOMI. No scleral icterus. No conjunctival pallor. Normocephalic, atraumatic. No pharyngeal erythema. No thyromegaly. CARDIOVASCULAR: S1 and S2 present. No murmurs, rubs, or gallops. Not appreciate any JVD the baby an S3 PULMONARY: Chest is clear to auscultation, no wheezing mild bibasilar crackles are appreciated ABDOMEN: Soft, nontender, nondistended, normoactive bowel sounds. No palpable organomegaly. MUSCULOSKELETAL: No joint swelling or deformity. EXTREMITIES: No cyanosis, clubbing, or pedal edema. NEUROLOGICAL: Gross neurological examination did not reveal any focal deficits. SKIN: No rashes. Results CBC & Chem 7: 02/12/17 08:07 02/12/17 08:07 Labs: Abnormal Lab Results - Last 24 Hours (Table) 02/12/17 02/12/17 02/12/17 Range/Units 08:07 08:07 08:07 RBC 3.08 L (4.30-5.90) m/uL Hgb 9.8 L (13.0-17.5) gm/dL Hct 30.1 L (39.0-53.0) % Neutrophils # 8.1 H (1.3-7.7) k/uL Chloride 97 L (98-107) mmol/L BUN 90 H* (9-20) mg/dL Creatinine 6.82 H* (0.66-1.25) mg/dL Glucose 186 H (74-99) mg/dL POC Glucose (mg/dL) (75-99) mg/dL ALT 11 L (21-72) U/L Alkaline Phosphatase 197 H (38-126) U/L Troponin I 0.042 H* (0.000-0.034) ng/mL 02/12/17 Range/Units 16:27 RBC (4.30-5.90) m/uL Hgb (13.0-17.5) gm/dL Hct (39.0-53.0) % Neutrophils # (1.3-7.7) k/uL Chloride (98-107) mmol/L BUN (9-20) mg/dL Creatinine (0.66-1.25) mg/dL Glucose (74-99) mg/dL POC Glucose (mg/dL) 201 H (75-99) mg/dL ALT (21-72) U/L Alkaline Phosphatase (38-126) U/L Troponin I (0.000-0.034) ng/mL Thrombosis Risk Factor Assmnt - Choose All That Apply Any of the Below Risk Factors Present?: Yes Each Factor Represents 1 point: Obesity (BMI >25), Swollen legs (current) Other Risk Factors: Yes Each Risk Factor Represents 2 Points: Age 61-74 years Other congenital or acquired thrombophilia - If yes, enter type in comment: No Thrombosis Risk Factor Assessment Total Risk Factor Score: 4 Thrombosis Risk Factor Assessment Level: Moderate Risk Assessment and Plan Plan: #1 shortness of breath and hypoxic respiratory failure: Secondary to pulmonary edema and fluid overload probably noncardiogenic and patient will undergo hemodialysis as mentioned above. His fluid overload is probably related to IV antibiotics he was receiving for pacemaker #2 type 2 diabetes mellitus: Patient did not take his Lantus today will be resumed tomorrow we will use sliding scale insulin patient blood sugars are okay now. #3 possible diastolic dysfunction chronic. 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 #9 depression For above-mentioned chronic medical problems appropriate medications will be resumed and continued
[2017-02-12] MEDS ORDERED: INSULIN LISPRO (humaLOG) 300 UNIT/3 ML VIAL SQ SCH (17:30)
[2017-02-12] MEDS: INSULIN LISPRO (humaLOG) 300 UNIT/3 ML VIAL SQ SCH ×2 (17:38→21:05)
[2017-02-12] MEDS: SEVELAMER 800 MG TAB PO SCH (17:38)
[2017-02-12 20:04] LABS: Hemoglobin A1C 6.5 % (4.2-6.1)
[2017-02-12] MEDS ORDERED: ATORVASTATIN 80 MG TAB PO SCH (21:00)
[2017-02-12 21:05] LABS: Glucose,Whole Blood 147 mg/dL (75-99)
[2017-02-13 05:54] LABS: Glucose,Whole Blood 147 mg/dL (75-99)
[2017-02-13 05:55] LABS: Basophils % (A) 0 %; CHCM 32.5; Eosinophils # (A) 0.1 k/uL (0-0.7); Eosinophils % (A) 1 %; HCT 29.1 % (39.0-53.0); HDW 2.52; HGB 9.5 gm/dL (13.0-17.5); Luc # (Auto) 0.11; Luc % (Auto) 2; Lymphocytes # (A) 1.4 k/uL (1.0-4.8); Lymphocytes % (A) 18 %; MCH 32.3 pg (25.0-35.0); MCHC 32.6 g/dL (31.0-37.0); MCV 99.1 fL (80.0-100.0); Monocytes # (A) 0.4 k/uL (0-1.0); Monocytes % (A) 6 %; Neutrophils # (A) 5.7 k/uL (1.3-7.7); Neutrophils % (A) 73 %; RBC 2.93 m/uL (4.30-5.90); RDW 14.2 % (11.5-15.5); WBC 7.8 k/uL (3.8-10.6); WBC (Perox) 8.25
[2017-02-13 06:04] LABS: Calcium 9.5 mg/dL (8.4-10.2); Potassium 4.3 mmol/L (3.5-5.1); Total Bilirubin 0.8 mg/dL (0.2-1.3); Total Protein 7.2 g/dL (6.3-8.2)
[2017-02-13] MEDS: SEVELAMER 800 MG TAB PO SCH ×3 (06:54→14:06)
[2017-02-13] MEDS: INSULIN LISPRO (humaLOG) 300 UNIT/3 ML VIAL SQ SCH ×2 (06:54→12:11)
[2017-02-13] MEDS ORDERED: FUROSEMIDE 20 MG TAB PO SCH (09:00)
[2017-02-13] MEDS ORDERED: INSULIN LISPRO (humaLOG) 300 UNIT/3 ML VIAL SQ SCH (09:00)
[2017-02-13] MEDS ORDERED: INSULIN GLARGINE 100 UNIT/ML 10 ML VIAL SQ SCH ×2 (10:00→12:00)
[2017-02-13 11:29] LABS: Glucose,Whole Blood 163 mg/dL (75-99)
[2017-02-13] MEDS ORDERED: MULTIVITAMINS, THERA 1 EACH TAB PO SCH (12:00)
[2017-02-13] MEDS ORDERED: ASPIRIN 81 MG PO SCH (12:00)
[2017-02-13] MEDS ORDERED: FLUoxetine HCL 20 MG CAP PO SCH (12:00)
[2017-02-13] MEDS ORDERED: CHOLECALCIFEROL 1,000 UNIT TAB PO SCH (12:00)
[2017-02-13] MEDS ORDERED: amLODIPine 5 MG TAB PO SCH (12:00)
[2017-02-13] MEDS ORDERED: ALLOPURINOL 100 MG TAB PO SCH (12:00)
[2017-02-13] MEDS ORDERED: SEVELAMER HCL 1600 MG PO SCH (12:30)
[2017-02-13 14:23] VITALS: BP 156/81; PULSE 70; TEMP 97.1
--- NOTE | 2017-02-13 14:33 | P.DS ---
Providers Date of admission: 02/12/17 10:20 Expected date of discharge: 02/13/17 Attending physician: Mone Fleming Consults: 02/12/17 10:21 Consult Physician Urgent Consulting Provider: Nioclasa Pringle Consult Reason/Comments: Fluid overload Do you want consulting provider notified?: Yes Primary care physician: Physician Reyes Lieberman Hospital Course: Final Diagnoses: #1 shortness of breath and hypoxic respiratory failure: Secondary to pulmonary edema and fluid overload probably noncardiogenic, His fluid overload is probably related to IV antibiotics he was receiving for pacemaker #2 type 2 diabetes mellitus: #3 possible diastolic dysfunction chronic. #4 gastroesophageal reflux disease #5 hyperlipidemia #6 hypertension #7 high degree AV block for which patient has a pacemaker recently. #8 depression Hospital COurse: THis is a 66-year-old pleasant gentleman with end-stage renal disease admitted with complaints of shortness of breath,orthopnea and PND, found to have pulmonary edema per chest x-ray. Patient recently had a permanent pacemaker placement for the AV dissociation and high degree AV block; had been receiving IV antibiotics. Evaluated by Nephrology. Received HD with significant clinical improvement. CLeared by nephrology for discharge. Patient is being discharged home in a stable condition with guarded prognosis. The impression and plan of care has been dictated as directed as a scribe. : I performed a H&P examination of this patient and discussed the same with the dictator. I agree with the dictator's note. Any additional findings/opinions will be noted. Patient Condition at Discharge: Stable Plan - Discharge Summary New Discharge Prescriptions: Continue Insulin Glargine [Lantus] 8 unit SQ DAILY@1200 Atorvastatin Calcium [Lipitor] 80 mg PO HS FLUoxetine HCL [PROzac] 20 mg PO DAILY@1200 Insulin Aspart [NovoLOG] 5 unit SQ DAILY Furosemide [Lasix] 60 mg PO SUMOWEFR Cholecalciferol [Vitamin D3] 1,000 unit PO DAILY@1200 Allopurinol [Zyloprim] 100 mg PO DAILY@1200 Sevelamer HCl [Renagel] 1,600 mg PO AC-SUPPER Multivitamin [Men's Multi-Vitamin] 1 tab PO DAILY@1200 Mag/Aluminum/Sod Bicarb/Alginc [Gaviscon 80-14.2 mg Tab Chew] 1 tab PO DAILY PRN PRN Reason: Heartburn Aspirin [Adult Low Dose Aspirin EC] 81 mg PO DAILY@1200 Sevelamer HCl [Renagel] 1,600 mg PO W/LUNCH Sevelamer HCl [Renagel] 800 mg PO AC-BRKFST amLODIPine BESYLATE [Norvasc] 5 mg PO DAILY@1200 Discharge Medication List Atorvastatin Calcium [Lipitor] 80 mg PO HS 09/29/13 [History] FLUoxetine HCL [PROzac] 20 mg PO DAILY@119909/29/13 [History] Insulin Glargine [Lantus] 8 unit SQ DAILY@119909/29/13 [History] Insulin Aspart [NovoLOG] 5 unit SQ DAILY 03/14/14 [History] Furosemide [Lasix] 60 mg PO SUMOWEFR 09/30/14 [History] Allopurinol [Zyloprim] 100 mg PO DAILY@119901/30/17 [History] Aspirin [Adult Low Dose Aspirin EC] 81 mg PO DAILY@119901/30/17 [History] Cholecalciferol [Vitamin D3] 1,000 unit PO DAILY@119901/30/17 [History] Mag/Aluminum/Sod Bicarb/Alginc [Gaviscon 80-14.2 mg Tab Chew] 1 tab PO DAILY PRN 01/30/17 [History] Multivitamin [Men's Multi-Vitamin] 1 tab PO DAILY@119901/30/17 [History] Sevelamer HCl [Renagel] 1,600 mg PO AC-SUPPER 01/30/17 [History] Sevelamer HCl [Renagel] 1,600 mg PO W/LUNCH 01/30/17 [History] Sevelamer HCl [Renagel] 800 mg PO AC-BRKFST 01/30/17 [History] amLODIPine BESYLATE [Norvasc] 5 mg PO DAILY@1200 02/12/17 [History] Follow up Appointment(s)/Referral(s): Pankaj Park DO [Doctor of Osteopathic Medicine] - 3 Days Nicolasa Pringle MD [STAFF PHYSICIAN] - 1 Week Ambulatory/Diagnostic Orders: Complete Blood Count w/diff [LAB.AMB] Time Frame: 3 Days, Location: Determined By Patient Activity/Diet/Wound Care/Special Instructions: Renal DIet HD as per Nephrology
--- NOTE | 2017-02-13 14:40 | CONS ---
CONSULTATION DATE OF SERVICE: 02/13/2017. REASON FOR CONSULT: End-stage renal disease. HISTORY OF PRESENT ILLNESS: The patient is a 66-year-old male with end-stage renal disease, on hemodialysis on a Saturday, , Saturday schedule. He was admitted to the hospital yesterday with complaints of increasing shortness of breath. He denies any chest pain. He states that he felt he had extra fluid on, as his dry weight was also up after his recent surgery for pacemaker placement. No fever or chills. Patient's O2 sat at home was about 80%. He was dialyzed yesterday with UF of about 2-2.5 L and he tolerated that fairly well. The patient states he usually gets cramps if he has a more than 2 L of ultrafiltration. PAST MEDICAL HISTORY: End-stage renal disease, hypertension, CKD bone mineral disorder, type 2 diabetes, obesity, hyperlipidemia, anemia of chronic disease, Charcot foot, history of retinopathy. PAST SURGICAL HISTORY: Right arm AV fistula, cataract surgery, recent pacemaker. SOCIAL HISTORY: Negative for smoking, drug abuse or alcohol abuse. MEDICATIONS AT HOME: Include: 1. Renagel. 2. Aspirin. 3. Zyloprim. 4. Lipitor. 5. Prozac. 6. Insulin. 7. Lasix. ALLERGIES: None. REVIEW OF SYSTEMS: As per HPI. Other systems negative. EXAMINATION: Patient is comfortable, awake. He is not in any acute distress. Blood pressure 136/74, heart rate 77 per minute. Patient is afebrile. HEART: S1, S2. LUNGS: Bilateral breath sounds are heard. Decreased breath sounds at bases. ABDOMEN: Soft, nontender, obese. Lower extremities show no evidence of edema. COMMERCIAL FOOD INSTRUCTOR: Grossly intact. LABS: Show sodium 138, potassium 4.3, BUN 43 and creatinine 4.28. Hemoglobin 9.5 g/dL. ASSESSMENT: 1. End-stage renal disease, on hemodialysis on a Saturday, , Saturday schedule, status post dialysis yesterday. The patient will be dialyzed again today for about 2 hours. We will try to remove about 2-2.5 L and he will go for his regular treatment tomorrow as outpatient. 2. Fluid overload, currently improved. 3. Anemia of chronic disease. 4. Status post recent pacemaker placement. PLAN: Repeat dialysis today for about 2 hours and patient can be discharged post dialysis. MMODL / IJN: [id number] /
--- NOTE | 2017-02-18 10:21 | CDI ---
In responding to this query, please exercise your independent professional judgment. The [facility] Coding Staff and Clinical Documentation Specialists appreciate your assistance in clarifying documentation, maintaining compliance with coding guidelines, accurately documenting patients condition and capturing severity of illness. The fact that a question is asked does not imply that any particular answer is desired or expected. Communication forms are a method of clarifying documentation and are not made part of the Legal Health Record. Thank you in advance for your clarification. Last Revision, March 2015 Reuben Rae [address] [facility] [place] [address] Documentation Clarification Form Date: 02/18/2017 9:59:00 AM From: Sue Carolyn Phone: Admit Date: 02/12/2017 10:20:00 AM Patient Name: Cesar Solares Visit Number: [id number] Discharge Date: Dr. Mone Newton Pulmonary edema is documented in the H&P and discharge summary. Patient history/risk factors: Patient has endstage renal disease and is on hemodialysis. Documentation states that the patient had IV antibiotics for pacemaker placement and had pulmonary edema and fluid overload due to that. Clinical Indicators: Shortness of breath. Radiology findings: Consider CHF exacerbation as there is cardiomegaly with more prominent tiny bilateral pleural effusions as well as new mild central vascular congestion and interstitial edema felt present. Vital Signs: T. 98.6, P. 95, R. 16 BP 140/83 Treatment: Hemodialysis on 02/12 and 02/13 In your professional opinion, can you please clarify if the pulmonary edema was? - Acute - Chronic - Other - Unable to determine Please document in your discharge summary in order to capture severity of illness and risk of mortality. Include clinical findings that support your diagnosis. FYI: Press F11 to launch patient chart. If you have a question about this query please contact Nayeli Griffin at [phone] between 8am and 5pm. YAMILEX
--- NOTE | 2017-02-18 10:43 | CDI ---
In responding to this query, please exercise your independent professional judgment. The [facility] Coding Staff and Clinical Documentation Specialists appreciate your assistance in clarifying documentation, maintaining compliance with coding guidelines, accurately documenting patients condition and capturing severity of illness. The fact that a question is asked does not imply that any particular answer is desired or expected. Communication forms are a method of clarifying documentation and are not made part of the Legal Health Record. Thank you in advance for your clarification. Last Revision, July 2015 Reuben Rae [address] [place] [address] Documentation Clarification Form Date: 02/18/2017 10:22:00 AM From: Sue Carolyn Phone: Admit Date: 02/12/2017 10:20:00 AM Patient Name: Cesar Solares Visit Number: [id number] Discharge Date: Dr. Mone Newton The patient presented with the following respiratory symptoms shortness of breath, orthopnea and PND. Documentation and location in medical record included: Respiratory failure documented in the H&P and discharge summary. History/Risk Factors: Endstage renal disease on hemodialysis. Patient was admitted with pulmonary edema and fluid overload. Oxygen saturation at home was in the mid to low 80s. Tobacco use: No history of tobacco use. Home oxygen: None. Clinical Indicators: Shortness of breath, orthopnea, PND, O2 sat in the mid to low 80s at home. Vital signs/Pulse oximetry: T. 98.6, P. 95, R. 16, BP 140/83, Pulse ox. 88 Lung/Breathing assessment: Chest is clear to auscultation, no wheezing, mild bibasilar crackles are appreciated. Treatment: O2 at 2 liters per nasal canula Breathing tx: None In your professional opinion, can you please clarify if the Respiratory Failure was? Acuity: o Acute o Chronic o Acute on Chronic - Unable to determine Please document in your and discharge summary in order to capture severity of illness and risk of mortality. Include clinical findings that support your diagnosis. FYI: Press F11 to launch patient chart. If you have a question about this query, please contact Nayeli Griffin inside sales territory manager at [phone] between 8am and 5 pm. YAMILEX
--- NOTE | 2017-02-20 09:40 | CDI ---
In responding to this query, please exercise your independent professional judgment. The [facility] Coding Staff and Clinical Documentation Specialists appreciate your assistance in clarifying documentation, maintaining compliance with coding guidelines, accurately documenting patients condition and capturing severity of illness. The fact that a question is asked does not imply that any particular answer is desired or expected. Communication forms are a method of clarifying documentation and are not made part of the Legal Health Record. Thank you in advance for your clarification. Last Revision, March 2015 Reuben Rae [address] [place] [address] Documentation Clarification Form Date: 02/18/2017 9:59:00 AM From: Sue Carolyn Phone: Admit Date: 02/12/2017 10:20:00 AM Patient Name: Cesar Solares Visit Number: [id number] Discharge Date: Dr. Narcisa Fleming Pulmonary edema is documented in the H&P and discharge summary. Patient history/risk factors: Patient has endstage renal disease and is on hemodialysis. Documentation states that the patient had IV antibiotics for pacemaker placement and had pulmonary edema and fluid overload due to that. Clinical Indicators: Shortness of breath. Lab findings: Radiology findings: Consider CHF exacerbation as there is cardiomegaly with more prominent tiny bilateral pleural effusions as well as new mild central vascular congestion and interstitial edema felt present. Vital Signs: T. 98.6, P. 95, R. 16 BP 140/83 Treatment: Hemodialysis on 02/12 and 02/13 In your professional opinion, can you please clarify if the pulmonary edema was? - Acute - Chronic - Other - Unable to determine Please document in your discharge summary in order to capture severity of illness and risk of mortality. Include clinical findings that support your diagnosis. FYI: Press F11 to launch patient chart. If you have a question about this query, please call Nayeli Griffin, [employer] Wiring Technician at [phone] between 8am and 5pm. YAMILEX
--- NOTE | 2017-02-20 09:44 | CDI ---
In responding to this query, please exercise your independent professional judgment. The [facility] Coding Staff and Clinical Documentation Specialists appreciate your assistance in clarifying documentation, maintaining compliance with coding guidelines, accurately documenting patients condition and capturing severity of illness. The fact that a question is asked does not imply that any particular answer is desired or expected. Communication forms are a method of clarifying documentation and are not made part of the Legal Health Record. Thank you in advance for your clarification. Last Revision, July 2015 Reuben Rae [address] [facility] [place] [address] Documentation Clarification Form Date: 02/18/2017 10:22:00 AM From: Sue Carolyn Phone: Admit Date: 02/12/2017 10:20:00 AM Patient Name: Cesar Solares Visit Number: [id number] Discharge Date: Dr. Narcisa Fleming The patient presented with the following respiratory symptoms shortness of breath, orthopnea and PND. Documentation and location in medical record included: Respiratory failure documented in the H&P and discharge summary. History/Risk Factors: Endstage renal disease on hemodialysis. Patient was admitted with pulmonary edema and fluid overload. Oxygen saturation at home was in the mid to low 80s. Tobacco use: No history of tobacco use. Home oxygen: None. Clinical Indicators: Shortness of breath, orthopnea, PND, O2 sat in the mid to low 80s at home. Vital signs/Pulse oximetry: T. 98.6, P. 95, R. 16, BP 140/83, Pulse ox. 88 Lung/Breathing assessment: Chest is clear to auscultation, no wheezing, mild bibasilar crackles are appreciated. Treatment: O2 at 2 liters per nasal canula Breathing tx: None In your professional opinion, can you please clarify if the Respiratory Failure was? Acuity: o Acute o Chronic o Acute on Chronic - Unable to determine Please document in your discharge summary in order to capture severity of illness and risk of mortality. Include clinical findings that support your diagnosis. FYI: Press F11 to launch patient chart. If you have a question about this query, please call Nayeli Griffin Journeyman Pressman at [phone] between 8am and 5pm. YAMILEX
--- NOTE | 2017-02-25 08:11 | CDI ---
In responding to this query, please exercise your independent professional judgment. The [facility] Coding Staff and Clinical Documentation Specialists appreciate your assistance in clarifying documentation, maintaining compliance with coding guidelines, accurately documenting patients condition and capturing severity of illness. The fact that a question is asked does not imply that any particular answer is desired or expected. Communication forms are a method of clarifying documentation and are not made part of the Legal Health Record. Thank you in advance for your clarification. Last Revision, March 2015 Reuben Rae [address] [facility] [place] [address] Documentation Clarification Form Date: 02/18/2017 9:59:00 AM From: Sue Carloyn Phone: Admit Date: 02/12/2017 10:20:00 AM Patient Name: Cesar Solares Visit Number: [id number] Discharge Date: Dr. Narcisa Fleming Pulmonary edema is documented in the H&P and discharge summary. Patient history/risk factors: Patient has endstage renal disease and is on hemodialysis. Documentation states that the patient had IV antibiotics for pacemaker placement and had pulmonary edema and fluid overload due to that. Clinical Indicators: Shortness of breath. Lab findings: Radiology findings: Consider CHF exacerbation as there is cardiomegaly with more prominent tiny bilateral pleural effusions as well as new mild central vascular congestion and interstitial edema felt present. Vital Signs: T. 98.6, P. 95, R. 16 BP 140/83 Treatment: Hemodialysis on 02/12 and 02/13 In your professional opinion, can you please clarify if the pulmonary edema was? - Acute - Chronic - Other - Unable to determine Please document in your discharge summary in order to capture severity of illness and risk of mortality. Include clinical findings that support your diagnosis. FYI: Press F11 to launch patient chart. If you have a question about this query, please contact Nayeli Griffin, [employer] Pump Operator at [phone] between 8am and 5pm. YAMILEX
--- NOTE | 2017-02-25 08:18 | CDI ---
In responding to this query, please exercise your independent professional judgment. The [facility] Coding Staff and Clinical Documentation Specialists appreciate your assistance in clarifying documentation, maintaining compliance with coding guidelines, accurately documenting patients condition and capturing severity of illness. The fact that a question is asked does not imply that any particular answer is desired or expected. Communication forms are a method of clarifying documentation and are not made part of the Legal Health Record. Thank you in advance for your clarification. Last Revision, July 2015 Reuben Rae [address] [place] [address] Documentation Clarification Form Date: 02/18/2017 10:22:00 AM From: Sue Carolyn Phone: Admit Date: 02/12/2017 10:20:00 AM Patient Name: Cesar Solares Visit Number: [id number] Discharge Date: Dr. Narcisa Fleming The patient presented with the following respiratory symptoms shortness of breath, orthopnea and PND. Documentation and location in medical record included: Respiratory failure documented in the H&P and discharge summary. History/Risk Factors: Endstage renal disease on hemodialysis. Patient was admitted with pulmonary edema and fluid overload. Oxygen saturation at home was in the mid to low 80s. Tobacco use: No history of tobacco use. Home oxygen: None. Clinical Indicators: Shortness of breath, orthopnea, PND, O2 sat in the mid to low 80s at home. Vital signs/Pulse oximetry: T. 98.6, P. 95, R. 16, BP 140/83, Pulse ox. 88 Lung/Breathing assessment: Chest is clear to auscultation, no wheezing, mild bibasilar crackles are appreciated. Treatment: O2 at 2 liters per nasal canula Breathing tx: None In your professional opinion, can you please clarify if the Respiratory Failure was? Acuity: o Acute o Chronic o Acute on Chronic - Unable to determine Please document in your discharge summary in order to capture severity of illness and risk of mortality. Include clinical findings that support your diagnosis. FYI: Press F11 to launch patient chart. If you have a question about this query, please contact Nayeli Griffin Cloth Bleaching Range Tender at [phone] between 8am and 5pm. YAMILEX
== END 2017-02-13 15:50 | disposition home or self-care (01) | DRG 640 ==
LOC: EC 07:49 → 6SEL 10:20
PROVIDERS: ADMIT Internal Medicine; ATTEND Internal Medicine
PROC: 5A1D70Z Performance of Urinary Filtration, Intermittent, Less than 6 Hours Per Day (ICD-10-PCS; principal; 2017-02-13)
DX: E87.70 Fluid overload, unspecified (principal); N18.6 End stage renal disease; J96.01 Acute respiratory failure with hypoxia; J81.0 Acute pulmonary edema; I13.2 Hypertensive heart and chronic kidney disease with heart failure and with stage 5 chronic kidney disease, or end stage renal disease; I50.32 Chronic diastolic (congestive) heart failure; M41.9 Scoliosis, unspecified; E83.9 Disorder of mineral metabolism, unspecified; E11.21 Type 2 diabetes mellitus with diabetic nephropathy; E11.610 Type 2 diabetes mellitus with diabetic neuropathic arthropathy; E11.42 Type 2 diabetes mellitus with diabetic polyneuropathy; E11.22 Type 2 diabetes mellitus with diabetic chronic kidney disease; E11.319 Type 2 diabetes mellitus with unspecified diabetic retinopathy without macular edema; D63.8 Anemia in other chronic diseases classified elsewhere; E78.5 Hyperlipidemia, unspecified; F32.9 Major depressive disorder, single episode, unspecified; I35.0 Nonrheumatic aortic (valve) stenosis; I44.30 Unspecified atrioventricular block; K21.9 Gastro-esophageal reflux disease without esophagitis; E66.9 Obesity, unspecified; F90.9 Attention-deficit hyperactivity disorder, unspecified type; F41.9 Anxiety disorder, unspecified; T36.95XA Adverse effect of unspecified systemic antibiotic, initial encounter; Y92.9 Unspecified place or not applicable; Z79.4 Long term (current) use of insulin; Z79.82 Long term (current) use of aspirin; Z79.899 Other long term (current) drug therapy; Z95.0 Presence of cardiac pacemaker; Z99.2 Dependence on renal dialysis
CPT/HCPCS: 36415; 71020; 80053; 82550; 82553; 83036; 83605; 83735; 83880; 84484; 85025; 85610; 85730; 87040; 90935; 93005; 94760; 99285

== ENCOUNTER 2017-12-11 07:43 | Day surgery (SDC) | payer MEDICARE, BC ==
[2017-12-04 11:01] VITALS: BMI 36.1
[~2017-12-11 07:43] MED LIST: ALPRAZolam 0.25 MG TAB PO PRN; ALPRAZolam 0.5 MG TAB PO PRN; ASPIRIN 325 MG TAB PO STA; ATORVASTATIN 80 MG TAB PO STA; NITROGLYCERIN SL TABS 0.4 MG TAB SUBLINGUAL PRN; SODIUM CHLORIDE 0.9% 1,000 ML in EMPTY BAG 1 BAG IV ONE
[2017-12-11] MEDS ORDERED: SODIUM CHLORIDE 0.9% 1,000 ML IV ONE (08:27)
[2017-12-11 08:28] LABS: Glucose,Whole Blood 166 mg/dL (75-99)
[2017-12-11 09:15] LABS: Calcium 8.7 mg/dL (8.4-10.2); Potassium 4.3 mmol/L (3.5-5.1)
[2017-12-11] MEDS ORDERED: fentaNYL (PF) 50 MCG/ML 2 ML AMP ONE (09:15)
[2017-12-11] MEDS ORDERED: MIDAZOLAM 2 MG/2 ML VIAL ONE (09:16)
[2017-12-11 09:17] LABS: Basophils % (A) 1 %; Eosinophils # (A) 0.1 k/uL (0-0.7); Eosinophils % (A) 2 %; HGB 10.9 gm/dL (13.0-17.5); Lymphocytes # (A) 1.7 k/uL (1.0-4.8); Lymphocytes % (A) 21 %; MCH 30.9 pg (25.0-35.0); MCHC 33.9 g/dL (31.0-37.0); MCV 91.2 fL (80.0-100.0); Mean Platelet Volume 6.7; Monocytes # (A) 0.5 k/uL (0-1.0); Monocytes % (A) 6 %; Neutrophils # (A) 5.6 k/uL (1.3-7.7); Neutrophils % (A) 69 %; Platelet Count 214 k/uL (150-450); RBC 3.51 m/uL (4.30-5.90)
[2017-12-11] MEDS ORDERED: BENZOCAINE SPRAY 1 CAN MUCOUS MEM ONE ×2 (09:25→09:29)
[2017-12-11 09:34] VITALS: RESP 18
[2017-12-11] MEDS ORDERED: fentaNYL (PF) 50 MCG/ML 2 ML AMP IVP ONE (09:45)
[2017-12-11] MEDS ORDERED: MIDAZOLAM 2 MG/2 ML VIAL IVP ONE ×2 (09:45→09:49)
[2017-12-11] MEDS ORDERED: LIDOCAINE 1% INJ 10MG/ML (20 ML MDV) SQ ONE (10:25)
[2017-12-11] MEDS ORDERED: BIVALIRUDIN BOLUS 250 MG/50 ML IV ONE (10:41)
[2017-12-11] MEDS ORDERED: BIVALIRUDIN 250 MG in SODIUM CHLORIDE 0.9% 50 ML IV ONE (10:47)
[2017-12-11] MEDS ORDERED: IV FLUID CONTINUATION 1,000 ML IV ONE (10:51)
[2017-12-11] MEDS ORDERED: IOPAMIDOL-370 125ML BTL INJ ONE (11:00)
[2017-12-11] MEDS ORDERED: RX INFO: IV CONTRAST WAS GIVEN 1 EACH MISC MISCELLANE PRN (11:02)
[2017-12-11] MEDS ORDERED: SODIUM CHLORIDE 0.9% 1,000 ML IV SCH (11:15)
--- NOTE | 2017-12-11 11:31 | ECHOT ---
TRANSESOPHAGEAL ECHOCARDIOGRAM DATE OF SERVICE: 12/11/2017 PERFORMING PHYSICIAN: Jacky Cuevas MD, Manager Analysis. PROCEDURE PERFORMED: 1. Selective right and left coronary angiogram. 2. Fractional flow reserve FFR of the left anterior descending artery. INDICATION: This is a pleasant 67-year-old gentleman who was diagnosed with severe aortic stenosis based on transthoracic echocardiogram. He will be brought was brought today to undergo a STEPHAN and heart catheterization. APPROACH: Right common femoral artery. COMPLICATION: None. LEVEL OF SEDATION: Moderate with sedation length of 35 minutes. PROCEDURE DESCRIPTION: After obtaining an informed consent, the patient was brought to the cardiac gold leaf laborer. The right common femoral artery was cannulated using micropuncture technique. The micropuncture wire passed easily, then I did place a 6-Israeli sheath in the right common femoral artery. After that, I did selective right and left coronary angiogram using JR4 and JL4 catheters. After that, I did fractional flow reserve of the LAD. Please see a separate paragraph for that. SELECTIVE CORONARY ANGIOGRAM: 1. The RCA is a large caliber vessel. It is a dominant vessel. The RCA appears to have mild disease only in the midportion. Distally, it bifurcates into PDA and PLV branches, both are angiographically normal. 2. The left main is angiographically normal, it bifurcates into the left circumflex and left anterior descending artery. 3. The left circumflex is a large caliber vessel. It is a codominant vessel. The proximal circumflex appeared to be angiographically normal, the mid circumflex is normal and gives rise into a large OM branch which seems to be angiographically normal and the circumflex distally is normal and bifurcates into PDA and PLV branches, both are angiographically normal. 4. LAD, the very proximal LAD is angiographically normal. The proximal to mid LAD has a lesion, appeared to be in the range of 60%. We did an FFR of that lesion and the FFR came in to be ischemic at 0.79. The distal LAD appeared to be angiographically normal. 5. FFR of the LAD: After zeroing the Doppler wire and equalizing between the Doppler wire and the guiding catheter which was JL4 guiding catheter. We did actually an IFR without FFR and the IFR came into be at 0.77. The FFR without adenosine was 0.79. 6. The procedure was completed without any complication. CONCLUSION: 1. 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 2. Normal left main coronary artery. 3. Mild disease involving the left circumflex. 4. Intermediate to severe disease involving the LAD. The FFR came in to be a few 0.79, which is ischemic. POSTPROCEDURE MANAGEMENT: Evaluating the patient for SAVR or TAVR with coronary revascularization. MMODL / IJN: [id number] /
[2017-12-11 15:20] VITALS: TEMP 97.6
[2017-12-11 18:23] VITALS: BP 140/65; PULSE 70
--- NOTE | 2017-12-12 10:41 | ECHOT ---
TRANSESOPHAGEAL ECHOCARDIOGRAM DATE OF SERVICE: 12/11/2017 PERFORMING PHYSICIAN: Jacky Cuevas MD, Kitchenwhere Maker. PROCEDURE PERFORMED: Transesophageal echocardiogram. INDICATION: This is a pleasant 67-year-old gentleman who was diagnosed recently with severe aortic stenosis. The transesophageal echocardiogram for further evaluation of the aortic valve. Approach next 30. COMPLICATION: None. LEVEL OF SEDATION: Moderate sedation length of 10 minutes. PROCEDURE DESCRIPTION: After obtaining an informed consent, explaining the procedure, benefits, risks, complications and alternatives, the patient was brought to the transesophageal echocardiogram suite. A pulse oximetry and heart rate monitors were attached to the patient prior to the procedure. The patient's throat was sprayed using lidocaine locally. Following that, the patient was turned into left lateral position. A bite guard was placed and the patient was then sedated with the above doses of Versed and fentanyl in divided doses. Following that, the transesophageal echocardiogram probe was advanced through the bite guard into the mid esophagus where 2-D echocardiogram images as well as color Doppler images of various cardiac structures were obtained. We evaluated the interatrial septum using 2-D echocardiogram, color Doppler, and contrast study. The procedure was completed. There were no complications. FINDINGS: The left ventricular dimension appeared to be within normal limits. The ventricular systolic function is mildly impaired with EF around 45%-50%. There was mild global hypokinesia noted. The right ventricle is of normal size and function. The left atrium appeared to be severely dilated. The left atrial appendage appeared to be free from any thrombus. The interatrial septum appeared to be intact. The mitral valve appeared to be thickened and calcified with evidence of moderate mitral regurgitation. The aortic valve is very thickened and calcified with evidence of aortic stenosis, seems to be severe by area as well as by gradient. The area was 1 cm2 and the peak gradient was 70 with a mean of 42 mmHg. Tricuspid valve and pulmonic valve seems to be within normal limits. CONCLUSION: 1. Mildly impaired left ventricular function with an ejection fraction of 45%-50% and mild global hypokinesia. 2. Normal right ventricular dimension and systolic function. 3. Severe left atrial dilatation. 4. Normal left atrial appendage without any evidence of thrombus. 5. Intact interatrial septum without any evidence of shunt. 6. Thickened mitral valve leaflets with evidence of moderate mitral regurgitation. 7. Aortic sclerosis with evidence of severe aortic stenosis by area as well as by gradient. 8. Normal tricuspid valve and pulmonic valve. 9. No evidence of pericardial effusion. MMODL / IJN: [id number] /
== END 2017-12-11 19:00 | disposition home or self-care (01) ==
LOC: CATHCVL 07:43 → 3OBS 11:03 → CATHCVL 19:00
PROVIDERS: ATTEND Internal Medicine Interventional Cardiology
DX: I35.2 Nonrheumatic aortic (valve) stenosis with insufficiency (principal); I25.10 Atherosclerotic heart disease of native coronary artery without angina pectoris; E11.22 Type 2 diabetes mellitus with diabetic chronic kidney disease; I13.2 Hypertensive heart and chronic kidney disease with heart failure and with stage 5 chronic kidney disease, or end stage renal disease; I50.9 Heart failure, unspecified; N18.6 End stage renal disease; E78.5 Hyperlipidemia, unspecified; Z95.0 Presence of cardiac pacemaker; Z99.2 Dependence on renal dialysis; Z79.82 Long term (current) use of aspirin; Z79.4 Long term (current) use of insulin; Z79.899 Other long term (current) drug therapy
CPT/HCPCS: 93312; 93320; 93325; 80048; 85025; J2250; J2001; J3010; J0583; Q9967; 93454; 93571

== ENCOUNTER 2018-01-18 06:02 | Emergency (ER) | payer MEDICARE, BC ==
[2018-01-18] MEDS ORDERED: INSULIN REGULAR 100 UNIT/ML VIAL IV ONE ×2 (06:21→06:30)
[2018-01-18] MEDS ORDERED: INSULIN REGULAR 100 UNIT/ML VIAL ONE (06:25)
[2018-01-18] MEDS ORDERED: EPINEPHrine 10 ML SYRINGE (0.1 MG/ML) ONE (06:25)
[2018-01-18] MEDS ORDERED: SODIUM BICARB 8.4% 50 ML SYR (1 MEQ/ML) ONE (06:25)
[2018-01-18] MEDS ORDERED: DEXTROSE 50%-WATER 50 ML SYRINGE IVP ONE (06:25)
[2018-01-18] MEDS ORDERED: CALCIUM GLUCONATE 1,000 MG in SODIUM CHLORIDE 0.9% 100 ML IVPB ONE (06:26)
[2018-01-18 06:36] LABS: Glucose,Whole Blood 167 mg/dL (75-99)
[2018-01-18 06:50] LABS: Albumin 4.2 g/dL (3.5-5.0); Calcium 8.8 mg/dL (8.4-10.2); Potassium 4.7 mmol/L (3.5-5.1); Total Bilirubin 0.7 mg/dL (0.2-1.3); Total Protein 7.5 g/dL (6.3-8.2)
[2018-01-18 06:54] LABS: INR 1.1 (<1.2); Partial Thromboplastin Time 27.7 sec (22.0-30.0); Prothrombin Time 10.8 sec (9.0-12.0)
[2018-01-18 07:05] LABS: Troponin I 0.151 ng/mL (0.000-0.034)
--- NOTE | 2018-01-18 07:31 | ED ---
General Adult HPI - General Chief complaint: Cardiac Arrest/CPR Stated complaint: flu symptoms Time Seen by Provider: 01/18/18 06:33 Source: patient, EMS Mode of arrival: EMS Limitations: no limitations - History of Present Illness Initial comments: Cesar Solares is a 67-year-old gentleman with a history of end-stage renal disease on dialysis Saturday who is brought to the ED via EMS for evaluation of feeling unwell. Per EMS they were called by the patient's because the patient hasn't been feeling well, they arrived the patient was awake and talking, he advised him that he had not been feeling well. reminded them that he had missed his dialysis on due to attending an appointment and an eye doctor rather than dialysis. His last dialysis was on Saturday. Patient reports for the past couple days he's just been feeling very unwell. He's had some nausea apparently had some nonbloody nonbilious emesis and reports repeatedly stating that he doesn't feel well he thinks he has the flu. Patient remained awake and alert though feeling very weak. He was able to stand from the EMS gurney turn with assistance sat onto the bed at the emergency room and then laid back unresponsive. - Related Data Home Medications Medication Instructions Recorded Confirmed Atorvastatin Calcium [Lipitor] 80 mg PO HS 09/29/13 12/11/17 FLUoxetine HCL [PROzac] 20 mg PO 159909/29/13 12/11/17 Insulin Glargine [Lantus] 10 unit SQ W/BRKFST 09/29/13 12/11/17 Furosemide [Lasix] 80 mg PO SUMOWEFR 09/30/14 12/11/17 Allopurinol [Zyloprim] 100 mg PO 159901/30/17 12/11/17 Aspirin [Adult Low Dose Aspirin EC] 81 mg PO 159901/30/17 12/11/17 Cholecalciferol [Vitamin D3] 1,000 unit PO 159901/30/17 12/11/17 Multivitamin [Men's Multi-Vitamin] 1 tab PO 1600 01/30/17 12/11/17 Calm Tab Nature 1 tab PO TUTHSA 12/04/17 12/11/17 Cinacalcet [Sensipar] 30 mg PO TUTHSA 12/04/17 12/11/17 Docusate Soft Gel 250 mg PO DAILY PRN 12/04/17 12/11/17 Gabapentin [Neurontin] 100 mg PO HS 12/04/17 12/11/17 Hectorol Injection 1 applicate IV TUTHSA 12/04/17 12/11/17 Mag/Aluminum/Sod Bicarb/Alginc 2 each PO DAILY PRN 12/04/17 12/11/17 [Gaviscon 80-14.2 mg Tab Chew] Midodrine HCl 5 mg PO TUTHSA 12/04/17 12/11/17 Sevelamer Carbonate 1,600 mg PO W/LUNCH 12/04/17 12/11/17 Sevelamer Carbonate 1,600 mg PO W/SUPPER 12/04/17 12/11/17 Sevelamer Carbonate 800 mg PO W/BRKFST 12/04/17 12/11/17 Allergies Allergy/AdvReac Type Severity Reaction Status Date / Time No Known Allergies Allergy Verified 12/04/17 10:34 Review of Systems ROS Statement: Those systems with pertinent positive or pertinent negative responses have been documented in the HPI. ROS Other: All systems not noted in ROS Statement are negative. Limitations: ROS unobtainable due to patients medical condition Past Medical History Past Medical History: Heart Failure, Diabetes Mellitus, Dialysis, Eye Disorder, GERD/Reflux, Hypertension, Renal Disease, Skin Disorder Additional Past Medical History / Comment(s): hemodialysis TUTHSA(gets low blood pressure after), occular migraines, previously on meds for hypertenstion , heart murmer, bradycardia, leaky mitral valve, constipation, hx rosacea, kidney failure, occ. hypoglycemia, "no balance or stamina" uses wheelchair, charcot left foot History of Any Multi-Drug Resistant Organisms: None Reported Past Surgical History: Pacemaker Additional Past Surgical History / Comment(s): L arm shunt for dialysis, lashonda cataract removal, surgery for ingrown toenail Past Anesthesia/Blood Transfusion Reactions: No Reported Reaction Additional Past Anesthesia/Blood Transfusion Reaction / Comment(s): no family hx -adopted Type of Cardiac Device: Permanent Pacemaker Device Placement Date:: 02/04/17 Past Psychological History: Anxiety Smoking Status: Never smoker Past Alcohol Use History: None Reported Past Drug Use History: None Reported - Past Family History Father Family Medical History: No Reported History Additional Family Medical History / Comment(s): pt is adopted & does not know any biological family hx General Exam - General Exam Comments Initial Comments: GENERAL: Distressed, unresponsive, gasping respirations, skin appears grayish HENT: Normocephalic, Atraumatic. EYES: The sclera were anicteric and conjunctiva were pink and moist. Pupils were 3 mm and unreactive bilaterally PULMONARY: Agonal Snoring respirations CARDIOVASCULAR: There is a regular rate and rhythm, weak radial pulses were palpable, carotid and femoral pulses palpable on initial evaluation ABDOMEN: Soft and nontender with normal bowel sounds. SKIN: Skin has rosario discoloration, there is a well-healed scar on the left bicep consistent with history of AV fistula NEUROLOGIC: Unresponsive MUSCULOSKELETAL: No voluntary movement, no obvious injuries LYMPHATICS: No significant lymphadenopathy is noted PSYCHIATRIC: Unresponsive Limitations: Patient unresponsive Limitations: no limitations Course Vital Signs 01/18/18 06:21 Respiratory 24 Rate EKG Findings - EKG Comments: EKG Findings:: EKG obtained at 6:13 AM, rate of 60, rhythm is regular wide- complex, there appears to be P waves for each QRS in lead V1, however no discernible waves and other leads, does appear to be diffuse ST elevations and depressions. Medical Decision Making - Medical Decision Making After standing from the EMS gurney, the patient appeared rosario and diaphoretic, he stated that he didn't feel well. He sat in the ER bed and laid back unresponsive. He had palpable pulses but agonal respirations EKG was reviewed, wide complex with diffuse ST elevations and depressions. Considering the patient's history of missed dialysis there was concern for hyperkalemia and medications were ordered including calcium, insulin, D50 Respirations were assisted with BVM during preparation for intubation During intubation patient was noted to lose pulses ago into V. fib arrest Resuscitation was attempted per ACLS protocol - patient received high-quality CPR, he was was defibrillated and received multiple doses of epinephrine as well as a dose of sodium bicarb with no improvement. Bedside cardiac ultrasound was performed during pulse checks, as noted the patient had no meaningful cardiac activity noted on either of the cardiac ultrasounds and no large effusion was noted Resuscitation attempts were discontinued time of was 6:45 AM Patient's primary care physician was notified and agrees to sign the certificate psychological examiner was notified, releases the patient no indication for autopsy at this time Alt attempts are made to notify the patient's bowels but were unsuccessful, police were notified and will send a mounted police officer to the patient's house to notify his - Lab Data Result diagrams: 01/18/18 06:25 Lab Results 01/18/18 01/18/18 01/18/18 Range/Units 06:16 06:25 06:25 PT (9.0-12.0) sec INR (<1.2) APTT (22.0-30.0) sec Sodium 135 L (137-145) mmol/L Potassium 4.7 (3.5-5.1) mmol/L Chloride 93 L (98-107) mmol/L Carbon Dioxide 27 (22-30) mmol/L Anion Gap 15 mmol/L BUN 78 H (9-20) mg/dL Creatinine 7.34 H* (0.66-1.25) mg/dL Est GFR (CKD-EPI)AfAm 8 (>60 ml/min/1.73 sqM) Est GFR (CKD-EPI)NonAf 7 (>60 ml/min/1.73 sqM) Glucose 151 H (74-99) mg/dL POC Glucose (mg/dL) 167 H (75-99) mg/dL POC Glu Branch [facility] Department Chief Librarian ID Mervat Silva Calcium 8.8 (8.4-10.2) mg/dL Total Bilirubin 0.7 (0.2-1.3) mg/dL AST 19 (17-59) U/L ALT 17 L (21-72) U/L Alkaline Phosphatase 182 H (38-126) U/L CK-MB (CK-2) 2.0 (0.0-2.4) ng/mL Troponin I 0.151 H* (0.000-0.034) ng/mL Total Protein 7.5 (6.3-8.2) g/dL Albumin 4.2 (3.5-5.0) g/dL 01/18/18 Range/Units 06:25 PT 10.8 (9.0-12.0) sec INR 1.1 (<1.2) APTT 27.7 (22.0-30.0) sec Sodium (137-145) mmol/L Potassium (3.5-5.1) mmol/L Chloride (98-107) mmol/L Carbon Dioxide (22-30) mmol/L Anion Gap mmol/L BUN (9-20) mg/dL Creatinine (0.66-1.25) mg/dL Est GFR (CKD-EPI)AfAm (>60 ml/min/1.73 sqM) Est GFR (CKD-EPI)NonAf (>60 ml/min/1.73 sqM) Glucose (74-99) mg/dL POC Glucose (mg/dL) (75-99) mg/dL POC Glu Branch Or Department Chief Librarian ID Calcium (8.4-10.2) mg/dL Total Bilirubin (0.2-1.3) mg/dL AST (17-59) U/L ALT (21-72) U/L Alkaline Phosphatase (38-126) U/L CK-MB (CK-2) (0.0-2.4) ng/mL Troponin I (0.000-0.034) ng/mL Total Protein (6.3-8.2) g/dL Albumin (3.5-5.0) g/dL Critical Care Time Critical Care Time: Yes Total Critical Care Time: 40 Critical Care Time: Critical Care Critical care time was exclusive of separately billable procedures and treating other patients and teaching time. Critical care was necessary to treat or prevent imminent or life-threatening deterioration. Critical care was time spent personally by me on the following activities: development of treatment plan with patient or surrogate, discussions with consultants, discussions with primary provider, evaluation of patient's response to treatment, examination of patient, obtaining history from patient or surrogate, ordering and performing treatments and interventions, ordering and review of laboratory studies, ordering and review of radiographic studies, pulse oximetry, re-evaluation of patient's condition and review of old charts. Disposition Clinical Impression: Cardiac arrest Disposition: Is patient prescribed a controlled substance at d/c from ED?: No Referrals: Pankaj Park DO [Primary Care Provider] - 1-2 days Preliminary Cause of : Cardiac Arrest
[2018-01-18 07:40] VITALS: RESP 24
== END 2018-01-18 10:27 | disposition expired ==
LOC: EC 06:02
DX: I46.9 Cardiac arrest, cause unspecified (principal); R11.2 Nausea with vomiting, unspecified; I13.2 Hypertensive heart and chronic kidney disease with heart failure and with stage 5 chronic kidney disease, or end stage renal disease; E11.22 Type 2 diabetes mellitus with diabetic chronic kidney disease; E11.649 Type 2 diabetes mellitus with hypoglycemia without coma; N18.6 End stage renal disease; I50.9 Heart failure, unspecified; F41.9 Anxiety disorder, unspecified; Z79.4 Long term (current) use of insulin; Z79.82 Long term (current) use of aspirin; Z79.899 Other long term (current) drug therapy; Z99.2 Dependence on renal dialysis; Z99.3 Dependence on wheelchair; Z95.0 Presence of cardiac pacemaker
CPT/HCPCS: 31500; 36415; 80053; 82553; 84484; 85610; 85730; 92950; 93005; 99291